=== PATIENT | male | born 1990 | race American Indian/Alaskan Native ===

== ENCOUNTER 2018-11-23 16:06 | Emergency (ER) | payer OTHER ==
[2018-11-23 16:13] VITALS: BP 110/63
--- NOTE | 2018-11-23 16:38 | Emergency Department Report ---
Blank Doc - Documentation Documentation: Smashed finger 2 days ago at work . Rt index finger injury. Lt index finger . Worst at proximal finger. TTP. NL rom. small abrasion btwn index finger and long finger A/P Rt index finger injury Abrasion [employer] xray rt index finger
--- NOTE | 2018-11-23 17:44 | XRay Report ---
PROCEDURE: XR FINGER(S) 2+V RT TECHNIQUE: Right second finger, 3 views HISTORY: injury RT finger/Index COMPARISONS: None available FINDINGS: No fracture or dislocation. No focal osseous lesions. No radiopaque foreign body. IMPRESSION: No acute fracture or dislocation. No focal osseous lesions. This document is electronically signed by Lexie Garcia MD., November 23 2018 05:42:16 PM ET
--- NOTE | 2018-11-23 18:47 | Emergency Department Report ---
ED Upper Extremity Inj HPI - General Chief Complaint: Extremity Injury, Upper Stated Complaint: R FINGER INJURY Time Seen by Provider: 11/23/18 16:32 Source: patient Mode of arrival: Ambulatory Limitations: No Limitations - Related Data Previous Rx's Medication Instructions Recorded Last Taken Type Cyclobenzaprine [Flexeril 10mg] 10 mg PO Q8H PRN #21 tablet 03/11/14 Unknown Rx traMADol [Ultram 50 MG tab] 50 mg PO Q6HR PRN #20 tablet 03/11/14 Unknown Rx Ibuprofen [Motrin] 600 mg PO Q8H PRN #60 tablet 06/28/15 Unknown Rx methOCARBAMOL [Robaxin TAB] 500 mg PO BID #10 tab 06/28/15 Unknown Rx traMADol [Ultram] 50 mg PO Q6HR PRN #20 tablet 06/28/15 Unknown Rx Allergies Allergy/AdvReac Type Severity Reaction Status Date / Time No Known Allergies Allergy Unverified 03/11/14 14:30 ED Review of Systems ROS: Stated complaint: R FINGER INJURY Other details as noted in HPI ED Past Medical Hx - Past Medical History Previous Medical History?: No - Surgical History Past Surgical History?: No - Social History Smoking Status: Never Smoker Substance Use Type: Alcohol - Medications Home Medications: Home Medications Medication Instructions Recorded Confirmed Last Taken Type Cyclobenzaprine [Flexeril 10mg] 10 mg PO Q8H PRN #21 tablet 03/11/14 Unknown Rx traMADol [Ultram 50 MG tab] 50 mg PO Q6HR PRN #20 tablet 03/11/14 Unknown Rx Ibuprofen [Motrin] 600 mg PO Q8H PRN #60 tablet 06/28/15 Unknown Rx methOCARBAMOL [Robaxin TAB] 500 mg PO BID #10 tab 06/28/15 Unknown Rx traMADol [Ultram] 50 mg PO Q6HR PRN #20 tablet 06/28/15 Unknown Rx ED Physical Exam - General Limitations: No Limitations ED Course Vital Signs 11/23/18 16:12 Temperature 98 F Pulse Rate 64 Respiratory 18 Rate Blood Pressure 110/63 O2 Sat by Pulse 98 Oximetry Critical care attestation.: If time is entered above; I have spent that time in minutes in the direct care of this critically ill patient, excluding procedure time. ED Disposition Clinical Impression: Finger contusion Disposition: DC-01 TO HOME OR SELFCARE Is pt being admited?: No Does the pt Need Aspirin: No Condition: Stable Instructions: Landen Bates (ED) Additional Instructions: HYDRATE WELL WITH WATER FOLLOW UP PCP IF PERSISTS ACTIVITY TOLERATED DIET TOLERATED MED ORDERED ICE REST ELEVATE MOTRIN OR TYLENOL FOR PAIN SPLINT FOR 48 HOURS THEN THROW AWAY. Referrals: PRAVEEN LAWRENCE MD [Staff Physician] - 3-5 Days [facility] [Outside] - 3-5 Days Time of Disposition: 18:46
== END 2018-11-23 19:36 | disposition home or self-care (01) ==
LOC: ED 16:06
DX: S60.021A Contusion of right index finger without damage to nail, initial encounter (principal); W23.0XXA Caught, crushed, jammed, or pinched between moving objects, initial encounter; Y93.89 Activity, other specified; Y92.89 Other specified places as the place of occurrence of the external cause; Y99.8 Other external cause status

== ENCOUNTER 2019-11-12 14:19 | Emergency (ER) | payer OTHER ==
--- NOTE | 2019-11-12 20:32 | Emergency Department Report ---
- General Chief Complaint: Headache Stated Complaint: HEADACHE/BACK PAIN Time Seen by Provider: 11/12/19 19:30 Source: patient Mode of arrival: Ambulatory Limitations: No Limitations - Related Data Previous Rx's Medication Instructions Recorded Last Taken Type Cyclobenzaprine [Flexeril 10mg] 10 mg PO Q8H PRN #21 tablet 03/11/14 Unknown Rx traMADoL [Ultram 50 MG tab] 50 mg PO Q6HR PRN #20 tablet 03/11/14 Unknown Rx Ibuprofen [Motrin] 600 mg PO Q8H PRN #60 tablet 06/28/15 Unknown Rx methOCARBAMOL [Robaxin TAB] 500 mg PO BID #10 tab 06/28/15 Unknown Rx traMADoL [Ultram] 50 mg PO Q6HR PRN #20 tablet 06/28/15 Unknown Rx Amoxicillin [Amoxicillin TAB] 875 mg PO BID #20 tablet 11/12/19 Unknown Rx predniSONE [Deltasone] 20 mg PO QDAY #5 tab 11/12/19 Unknown Rx traMADoL [Ultram] 50 mg PO Q6HR PRN #20 tablet 11/12/19 Unknown Rx Allergies Allergy/AdvReac Type Severity Reaction Status Date / Time No Known Allergies Allergy Unverified 03/11/14 14:30 ED Review of Systems ROS: Stated complaint: HEADACHE/BACK PAIN Other details as noted in HPI ED Past Medical Hx - Past Medical History Previous Medical History?: No - Surgical History Past Surgical History?: No - Social History Smoking Status: Current Some Day Smoker Substance Use Type: None - Medications Home Medications: Home Medications Medication Instructions Recorded Confirmed Last Taken Type Cyclobenzaprine [Flexeril 10mg] 10 mg PO Q8H PRN #21 tablet 03/11/14 Unknown Rx traMADoL [Ultram 50 MG tab] 50 mg PO Q6HR PRN #20 tablet 03/11/14 Unknown Rx Ibuprofen [Motrin] 600 mg PO Q8H PRN #60 tablet 06/28/15 Unknown Rx methOCARBAMOL [Robaxin TAB] 500 mg PO BID #10 tab 06/28/15 Unknown Rx traMADoL [Ultram] 50 mg PO Q6HR PRN #20 tablet 06/28/15 Unknown Rx Amoxicillin [Amoxicillin TAB] 875 mg PO BID #20 tablet 11/12/19 Unknown Rx predniSONE [Deltasone] 20 mg PO QDAY #5 tab 11/12/19 Unknown Rx traMADoL [Ultram] 50 mg PO Q6HR PRN #20 tablet 11/12/19 Unknown Rx ED Physical Exam - General Limitations: No Limitations General appearance: alert, in no apparent distress - Head Head exam: Present: atraumatic, normocephalic - Eye Eye exam: Present: normal appearance, PERRL, EOMI - ENT ENT exam: Present: mucous membranes moist, other (Maxillary sinus tenderness to percussion. There is nasal congestion bilaterally. Sinuses are injected with some swelling small effusion behind left tympanic membrane. No lymphadenopathy is noted) - Neck Neck exam: Present: normal inspection, full ROM. Absent: meningismus, lymphadenopathy - Respiratory Respiratory exam: Present: normal lung sounds bilaterally. Absent: respiratory distress, rales, rhonchi, chest wall tenderness, accessory muscle use - Cardiovascular Cardiovascular Exam: Present: regular rate, normal rhythm. Absent: systolic murmur, diastolic murmur, rubs, gallop - GI/Abdominal GI/Abdominal exam: Present: soft, normal bowel sounds - Rectal Rectal exam: Present: deferred - Extremities Exam Extremities exam: Present: normal inspection - Back Exam Back exam: Present: normal inspection - Neurological Exam Neurological exam: Present: alert, oriented X3 - Psychiatric Psychiatric exam: Present: normal affect, normal mood - Skin Skin exam: Present: warm, dry, intact, normal color. Absent: rash ED Course Vital Signs 11/12/19 16:11 Temperature 98.0 F Pulse Rate 81 Respiratory 18 Rate Blood Pressure 107/58 O2 Sat by Pulse 97 Oximetry Critical care attestation.: If time is entered above; I have spent that time in minutes in the direct care of this critically ill patient, excluding procedure time. ED Disposition Clinical Impression: Acute frontal sinusitis Disposition: DC-01 TO HOME OR SELFCARE Is pt being admited?: No Does the pt Need Aspirin: No Condition: Stable Instructions: Sinusitis (ED) Referrals: PRIMARY CARE [Primary Care Provider] - 3-5 Days [facility] [Provider Group] - 3-5 Days
[2019-11-12 20:41] VITALS: BP 92/65
== END 2019-11-12 20:39 | disposition home or self-care (01) ==
LOC: ED 14:19
DX: J01.10 Acute frontal sinusitis, unspecified (principal); F17.200 Nicotine dependence, unspecified, uncomplicated
CPT/HCPCS: 99282